=== PATIENT | female | born 1965 | race Caucasian/White ===

== ENCOUNTER 2017-02-26 05:37 | Inpatient (IN) | payer OTHER ==
--- NOTE | 2017-02-25 17:58 | PREOPHP ---
DATE OF ADMISSION: 02/26/2017 REASON FOR ADMISSION: She is to be admitted tomorrow for exploratory laparotomy, total abdominal hy sterectomy, bilateral salpingo-oophorectomy and possible ureteral dissection. CHIEF COMPLAINT: The patient was found to have a large mass in her abdomen, probably of ovarian jasbir gin. HISTORY OF PRESENT ILLNESS: This is a 51-year-old female, 4, para 2 with 2 therapeutic abor tions, whose last menstrual period started on 01/18/2017. She first was seen in the office on 01/23. She was referred by her primary care physician with a large abdominal mass. She was diagnos ed in July of last year; however, after several different opinions, she was frustrated and final ly consulted with her current primary care provider who sent her to our care. She had on hand at th e time of the consultation an MRI of the pelvis with contrast on 07/24/2016 that showed an 22 cm com plex cystic mass probably coming from the ovaries. There was mild to moderate right hydronephrosis also probably caused by the pressure of the mass on the ureter. She was counseled to have an explor atory laparotomy and TAHBSO. She was sent to the lab for tumor markers. All the tumor markers came back negative. The exploratory laparotomy, however, will be done along with Dr. Jonas Cruz, [facility] oncologist, in case this is a malignant tumor and there will be a need for ureteral dissection and lymph node dissection. The alternatives, benefits and the risks of this procedures and possible co mplications were discussed with the patient in detail in the office. She was allowed to ask uriah ns and all her questions were answered to her satisfaction and she signed the appropriate surgical i nformed consent. PAST MEDICAL HISTORY: The patient denies any medical problems. She denies any cardiovascular disea se, hypertension, diabetes, renal disease, liver disease, neurological disease. ALLERGIES: NO KNOWN ALLERGIES. MEDICATIONS: She takes no medications on a regular basis. FAMILY HISTORY: Noncontributory. REVIEW OF SYSTEMS: A 12-point review of systems is noncontributory. PHYSICAL EXAMINATION: GENERAL: Well-developed and nourished, in no distress, alert and oriented x3. Height is 5 feet 6 i nches and weight of 147 pounds. BMI is 24. VITAL SIGNS: Showed the temperature to be 98, blood pressure 110/62, respirations 16 per minute, th e pulse is 80/minute, regular. HEENT: Within normal limits. Pupils are PERRLA. NECK: Supple. The thyroid is nonpalpable. There is no lymphadenopathy. BREASTS: Show no masses or lumps. Nipples normal. LUNGS: Clear to percussion and auscultation. HEART: Revealed normal sinus rhythm without a murmur. ABDOMEN: Soft. There is a large cystic mass that seems to come from the pelvis, both of them take up practically the entire abdomen, nontender. PELVIC: Normal external genitalia. The vagina is normal. Cervix is normal without lesions. There is a large cystic mass in the pelvis extending up to the abdomen. EXTREMITIES: Within normal limits. NEUROLOGIC: Also normal. IMPRESSION: Large cystic pelvic and abdominal mass probably arising from one of the ovaries. Mild to moderate right hydronephrosis. PLAN: The patient is to be admitted tomorrow 02/26/2017. Dictated By: KEVIN PRESLEY/KOSTAS Conf#: [id number] DID#: [id number] CC: JONAS CRUZ MD;*EndCC*
[~2017-02-26] VITALS: Ht 167.6 cm; Wt 65.9 kg
[2017-02-26] VITALS (26 sets, daily range): BP systolic 90–124; BP diastolic 45–71; PULSE 62–96; RESP 10–28; Ht 167.6 cm; Wt 65.9 kg
[2017-02-26] MEDS ORDERED: CIPR500T4 PO (06:53)
[2017-02-26] MEDS ORDERED: ETOMIDATE 20 MG INJ ONE (07:00)
[2017-02-26] MEDS ORDERED: CITRIC ACID/NA CITRATE 30 ML CUP ONE (07:08)
[2017-02-26] MEDS ORDERED: GLYCOPYRROLATE 0.4 MG INJ ONE (07:35)
[2017-02-26] MEDS ORDERED: PROPOFOL 20 ML ONE (07:35)
[2017-02-26] MEDS ORDERED: ROCURONIUM 50 MG INJ ONE (07:35)
[2017-02-26] MEDS ORDERED: MIDAZOLAM 1 MG/ML 2 ML INJ ONE (07:36)
[2017-02-26] MEDS ORDERED: CEFAZOLIN 1 GM INJ ONE (07:36)
[2017-02-26] MEDS ORDERED: FENTAnyl 50 MCG/ML VIAL ONE (07:36)
[2017-02-26] MEDS ORDERED: NEOSTIGMINE 3 MG/3 ML SYRINGE ONE (07:36)
[2017-02-26] MEDS ORDERED: DEXAMETHASONE 4 MG/ML 1 ML INJ ONE (07:37)
[2017-02-26] MEDS ORDERED: ONDANSETRON 4 MG INJ ONE (07:37)
[2017-02-26] MEDS ORDERED: morphine SULFATE/PF (10 MG/10 ML) INJ ONE (07:43)
[2017-02-26] MEDS ORDERED: EPHEDrine SULFATE 50 MG/5 ML SYG IV PRN (08:30)
[2017-02-26] MEDS ORDERED: ZOLPIDEM 5 MG TAB PO PRN (08:30)
[2017-02-26] MEDS ORDERED: HYDROmorphONE 1 MG/ML SYG IV PRN ×2 (08:30)
[2017-02-26] MEDS ORDERED: FENTAnyl 50 MCG/ML VIAL IV PRN ×3 (08:30)
[2017-02-26] MEDS ORDERED: NALBUPHINE HCL (10 MG/1 ML) INJ IV PRN (08:30)
[2017-02-26] MEDS ORDERED: TRIMETHOBENZAMIDE 100 MG/ML VIAL IM PRN ×2 (08:30)
[2017-02-26] MEDS ORDERED: MIDAZOLAM 1 MG/ML 2 ML INJ IV PRN (08:30)
[2017-02-26] MEDS ORDERED: NALOXONE (0.4 MG/ML) INJ IV PRN (08:30)
[2017-02-26] MEDS ORDERED: MEPERIDINE 25 MG INJ IV PRN (08:30)
[2017-02-26] MEDS ORDERED: LABETALOL HCL 20MG INJ IV PRN (08:30)
[2017-02-26] MEDS ORDERED: HYDROmorphONE (0.2 MG/ML) 10ML SYG IV PRN ×3 (08:30)
[2017-02-26] MEDS ORDERED: hydrALAzine 20 MG INJ IV PRN (08:30)
[2017-02-26] MEDS ORDERED: ONDANSETRON 4 MG INJ IV PRN ×3 (08:30→11:00)
[2017-02-26] MEDS ORDERED: OXYCODONE/ACETAMINOPHEN (5/325) TAB PO PRN ×3 (08:30→11:00)
[2017-02-26] MEDS ORDERED: DIPHENHYDRAMINE 50 MG INJ IV PRN ×2 (08:30)
[2017-02-26] MEDS ORDERED: THROMBIN 5000 UNIT VIAL ONE (09:46)
[2017-02-26] MEDS ORDERED: IBUPROFEN 600 MG TAB PO PRN (11:00)
[2017-02-26] MEDS ORDERED: ACETAMINOPHEN 325 MG TAB PO PRN (11:00)
[2017-02-26] MEDS ORDERED: morphine 2 MG INJ IV PRN (11:00)
--- NOTE | 2017-02-26 11:56 | OPR ---
DATE OF OPERATION: 02/26/2017 ANESTHESIOLOGIST: Dr. Sofia JOINTER OPERATOR: Dr. Surya Calvillo PREOPERATIVE DIAGNOSIS: Large ovarian cyst. 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 The contralateral right ovary looked normal as well as the tubes and uterus. The surgical staging for ovarian cancer was done by Dr. Calvillo. OPERATION PERFORMED: Exploratory laparotomy, total abdominal hysterectomy, bilateral salpingo-oophorectomy, multiple peritoneal biopsies. Partial omentectomy and appendectomy. Left aortic and pelvic node dissection by Dr. Calvillo. SURGEON: Kevin Soto MD ESTIMATED BLOOD LOSS: 200 mL of blood. Needle, sponge and instrument count were complete except there was 1 clamp missing that was finally found after taking 2 x-rays of the abdomen that were negative. After mobilizing with the patient postoperatively, the patient's clamp appeared in the surgical drapes. COMPLICATIONS:. None. PROCEDURE AND FINDINGS: With the patient under general anesthesia after spinal. she was laid on the table in the dorsal lithotomy position. She had a Saba catheter draining her bladder. The abdomen was prepped and draped in the usual fashion. A midline incision was done, carried out from the pubic bone all the way up to midway from the umbilicus to the epigastric area. A large ovarian mass was found coming from the left ovary. The infundibulopelvic ligament was then isolated and left ureter was found on the dissection. The IP ligament was transected with LigaSure and the specimen removed and sent for frozen section. Frozen section and turned out to be a mucinous borderline cystadenoma of the ovary. Thus, the surgical staging was decided by Dr. Calvillo to carry it out. A total abdominal hysterectomy was done in the usual fashion by clamping the first round ligaments with the LigaSure, open the anterior leaf of the broad ligament and dissecting the bladder away from the uterine isthmus. The pedicles were isolated bilaterally and cauterized with a LigaSure. The right ureter was foud was and the IP ligament was ligated with the Ligasure devise. The cardinal ligaments and uterosacral ligaments bilaterally were taken with clamps, cut and then were sutured with 0 Vicryl. The vagina was entered and the specimen removed. The vaginal cuff was then secured with [id number] sutures of 0 Vicryl that were held for reference. Pelvis was thoroughly washed with warm water. There were no active bleeders. The sutures were then cut. Posterior peritoneum was then opened. The retroperitoneal space was dissected by Dr. Calvillo beginning the staging for ovarian cancer. The periaortic lymph nodes were removed from the left side and then the pelvic lymph nodes also. Good hemostasis was observed. Then, partial omentectomy was done with the LigaSure and the specimen was also sent to pathology. Finally, an appendectomy was done in the usual fashion with Endo- OLI. All counts were correct at this point. Then, the abdomen was then closed in layers starting with the peritoneum and fascia and 1 running stitch of #1 Vicryl. At this point, there was one clamp was missing and after checking everywhere we did not find it and x-ray was called in. Two x-rays were taken of the abdomen and pelvis. They proved to be negative for any objects left behind. Then, the subcutaneous tissues were closed with continuous stitch of double 0 plain catgut. Finally, the edges of skin were brought together with separate sterile delisa. Sterile pressure dressing was applied and the patient was taken to recovery room with all vital signs stable. EBL was 200 mL of blood. Needle, sponge and instrument count at the end of the procedure was correct twice. Dictated By: KEVIN PRESLEY/KOSTAS Conf#: [id number] DID#: [id number] MTDD
[2017-02-26] MEDS: LACTATED RINGER'S 1,000 ML IV SCH ×2 (12:28→18:08)
[2017-02-26] MEDS: CEFAZOLIN 2 GM/50 ML (PMX) 50 ML IVPB SCH ×2 (14:23→22:55)
--- NOTE | 2017-02-26 14:23 | RADRPT ---
PROCEDURE: XR Abdomen. CLINICAL INDICATION: Missing instruments. TECHNIQUE: AP abdomen x-ray. COMPARISON: None. FINDINGS: The bowel gas pattern is normal. There is no evidence of free air or obstruction. There are no abnor mal calcifications overlying the urinary tracts. The osseus structures are unremarkable. No radiopaque foreign body. Saba catheter in place. IMPRESSION: 1. No evidence of radiopaque foreign body. Saba catheter in place. 2. No free air or obstruction. RPTAT:AAJJ Osman Avalos Physician Date Time Electronically viewed and signed by Physician Debora on 02/26/2017 14:22 JAME/
[2017-02-26] MEDS: KETOROLAC 30 MG INJ IV PRN (22:55)
[2017-02-27] MEDS: LACTATED RINGER'S 1,000 ML IV SCH ×2 (03:03→13:59)
[2017-02-27] MEDS: CEFAZOLIN 2 GM/50 ML (PMX) 50 ML IVPB SCH (05:08)
[2017-02-27] MEDS: KETOROLAC 30 MG INJ IV PRN (05:08)
[2017-02-27 05:50] LABS: ADD SCAN DIFF NO
[2017-02-27 06:10] VITALS: BP 100/51; PULSE 57; RESP 18
[2017-02-27 06:13] LABS: HEMATOCRIT 34.4 % (37.0-47.0); HEMOGLOBIN 10.9 g/dl (12.0-16.0); LYMPHOCYTES % 15.1 % (15.0-51.0); MEAN CORPUSCULAR HEMOGLOBIN 28.3 pg (29.0-33.0); MEAN CORPUSCULAR HGB CONC 31.7 g/dl (32.0-37.0); MEAN CORPUSCULAR VOLUME 89.4 fl (82.0-101.0); MEAN PLATELET VOLUME 11.3 fl (7.4-10.4); MONOCYTE # 0.8 10^3/ul (0.3-0.9); NEUTROPHIL # 5.1 10^3/ul (1.6-7.5); NEUTROPHILS % 73.6 % (39.0-77.0); PLATELET COUNT 183 10^3/UL (140-415); RED BLOOD COUNT 3.85 10^6/ul (4.20-5.40); RED CELL DISTRIBUTION WIDTH 13.2 % (11.5-14.5); WHITE BLOOD COUNT 6.9 10^3/ul (4.8-10.8)
[2017-02-27 06:52] LABS: CALCIUM 9.4 mg/dl (8.4-10.2); CREATININE 0.67 mg/dl (0.44-1.00); POTASSIUM 4.3 mmol/L (3.5-5.1)
[2017-02-27 07:30] VITALS: BP 91/53; RESP 18
--- NOTE | 2017-02-27 08:16 | PN ---
Date/Time of Note Date/Time of Note DATE: 02/27/17 TIME: 08:13 Assessment/Plan VTE Prophylaxis VTE Prophylaxis Intervention: ambulation, anti-embolic stocking Lines/Catheters IV Catheter Type (from Nrs): Peripheral IV Urinary Cath still in place: Yes Assessment/Plan Chief Complaint/Hosp Course Afebrile,in good spirits.WBC 6.9 Hgb 10.9 Problems: Assessment/Plan Doing well.Minimal BS. Cont'd Hospitalization Reason: Start ambulation and Lovenox for DVT-PE prevention Exam/Review of Systems Vital Signs Vitals Vital Signs Date Time Temp Pulse Resp B/P Pulse Ox O2 Delivery O2 Flow Rate FiO2 02/27/17 07:30 97.8 68 18 91/53 98 02/27/17 06:10 Room Air 02/26/17 12:20 2.0 Intake and Output 02/26/17 02/26/17 02/27/17 15:00 23:00 07:00 Intake Total 4550 ml 400 ml 1500 ml Output Total 800 ml 2500 ml Balance 3750 ml 400 ml -1000 ml Results Result Diagram: 02/27/17 0433 02/27/17 0433 Results 24 hrs Laboratory Tests Test 02/27/17 04:33 02/27/17 06:39 White Blood Count 6.9 Red Blood Count 3.85 L Hemoglobin 10.9 L Hematocrit 34.4 L Mean Corpuscular Volume 89.4 Mean Corpuscular Hemoglobin 28.3 L Mean Corpuscular Hemoglobin Concent 31.7 L Red Cell Distribution Width 13.2 Platelet Count 183 Mean Platelet Volume 11.3 H Neutrophils % 73.6 Lymphocytes % 15.1 Monocytes % 11.0 Eosinophils % 0.0 Basophils % 0.0 Nucleated Red Blood Cells % 0.0 Neutrophils # 5.1 Lymphocytes # 1.0 Monocytes # 0.8 Eosinophils # 0.0 Basophils # 0.0 Nucleated Red Blood Cells # 0.0 Sodium Level 141 Potassium Level 4.3 Chloride Level 107 Carbon Dioxide Level 27 Anion Gap 11 Blood Urea Nitrogen 8 Creatinine 0.67 Glucose Level 89 Calcium Level 9.4 Lab Scanned Report REFERENCE LAB Medications Medications Current Medications Hydromorphone HCl (Dilaudid) 0.2 mg Q2H PRN IV PAIN LEVEL 1-5; Start 02/26/17 at 08:30 Hydromorphone HCl (Dilaudid) 0.4 mg Q2H PRN IV PAIN LEVEL 6-10; Start 02/26/17 at 08:30 Ketorolac Tromethamine (Toradol) 30 mg Q6H PRN IV PAIN LEVEL 6-10 Last administered on 02/27/17 05:08; Admin Dose 30 MG; Start 02/26/17 at 08:30; Stop 02/27/17 at 08:29 Ondansetron HCl 4 mg 4 mg Q6H PRN IV NAUSEA AND/OR VOMITING; Start 02/26/17 at 08:30 Lactated Ringer's (Lr) 1,000 ml @ 100 mls/hr Q10H IV Last administered on 02/27 03:03; Admin Dose 100 MLS/HR; Start 02/26/17 at 10:46 Acetaminophen (Tylenol Tab) 650 mg Q4H PRN PO PAIN LEVEL 1-5; Start 02/26/17 at 11:00 Ibuprofen (Motrin) 600 mg Q8H PRN PO PAIN AND OR ELEVATED TEMP; Start 02/26/17 at 11:00 Oxycodone/ Acetaminophen (Percocet (5/ 325)) 1 tab Q4H PRN PO PAIN LEVEL 6-10; Start 02/26/17 at 11:00 Morphine Sulfate (morphine) 2 mg Q2H PRN IV BREAKTHROUGH PAIN; Start 02/26/17 at 11:00 Ondansetron HCl (Zofran Inj) 4 mg Q6H PRN IV NAUSEA AND/OR VOMITING Last administered on 02/26/17 18:47; Admin Dose 4 MG; Start 02/26/17 at 11:00 Oxycodone/ Acetaminophen (Percocet (5/ 325)) 2 tab Q4H PRN PO PAIN; Start 02/26 at 11:00 KEVIN ARIAS MD Feb 27, 2017 08:16
[2017-02-27] MEDS: PANTOPRAZOLE 40 MG INJ IV SCH (08:43)
[2017-02-27] MEDS: ENOXAPARIN 40 MG/0.4 ML SYG SC SCH (08:45)
[2017-02-27 21:58] VITALS: BP 101/50; RESP 20
[2017-02-28] MEDS: OXYCODONE/ACETAMINOPHEN (5/325) TAB PO PRN ×2 (02:35→18:09)
[2017-02-28] MEDS: LACTATED RINGER'S 1,000 ML IV SCH ×3 (02:46→22:46)
[2017-02-28] MEDS: PANTOPRAZOLE 40 MG INJ IV SCH (04:39)
[2017-02-28 08:16] VITALS: BP 98/55; RESP 16
[2017-02-28] MEDS: ENOXAPARIN 40 MG/0.4 ML SYG SC SCH (09:24)
--- NOTE | 2017-02-28 14:07 | PN ---
Date/Time of Note Date/Time of Note DATE: 02/28/17 TIME: 14:04 Assessment/Plan Lines/Catheters IV Catheter Type (from Nrsg): Peripheral IV Saba in Place (from Nrsg): Yes Subjective 24 Hr Interval Summary S no flatus yet tolerating diet ok O vss afebrile abdomen soft wound dry calf neg for tenderness no sig vaginal bleeding A ARSEN BSO etc P as ordered encourage ambulation Exam/Review of Systems Vital Signs Vitals Vital Signs Date Time Temp Pulse Resp B/P Pulse Ox O2 Delivery O2 Flow Rate FiO2 02/28/17 08:16 98.4 78 16 98/55 99 02/27/17 06:10 Room Air 02/26/17 12:20 2.0 Intake and Output 02/27/17 02/27/17 02/28/17 15:00 23:00 07:00 Intake Total 700 ml 1350 ml 1400 ml Output Total 1800 ml 1350 ml Balance 700 ml -450 ml 50 ml Results Result Diagram: 02/27/17 0433 02/27/17 0433 CHAPITO GREENBERG MD Feb 28, 2017 14:07
[2017-02-28 19:27] VITALS: BP 111/62; RESP 20
[2017-03-01] MEDS ORDERED: MAGNESIUM HYDROXIDE 30ML CUP PO PRN (05:00)
[2017-03-01] MEDS: OXYCODONE/ACETAMINOPHEN (5/325) TAB PO PRN (05:05)
[2017-03-01] MEDS ORDERED: PANTOPRAZOLE (EC) 40 MG TAB PO SCH (06:00)
[2017-03-01 08:06] VITALS: BP 104/60; RESP 16
[2017-03-01] MEDS: LACTATED RINGER'S 1,000 ML IV SCH (08:46)
[2017-03-01] MEDS: ENOXAPARIN 40 MG/0.4 ML SYG SC SCH (09:24)
--- NOTE | 2017-03-01 09:31 | DS ---
Date/Time of Note Date/Time of Note DATE: 03/01/17 TIME: 09:26 Discharge Summary Admission/Discharge Info Admit Date/Time Feb 26, 2017 at 05:37 Discharge Date/Time March 01 at 0930 Discharge Diagnosis mucinous cystadenoma borderline of left ovary Patient Condition: Stable Procedures explratory laparotomy ARSEN BSO peritoneal bx partial omentectomy appendectomy lt aortic pelvic node dissection Hx of Present Illness see hx Hospital Course Afebrile,in good spirits.WBC 6.9 Hgb 10.9 Home Meds Reported Medications Ciprofloxacin Hcl* (Ciprofloxacin Hcl*) 500 Mg Tablet, 500 MG PO BID, #14 TAB 02/26/17 Follow-up Plan call DR oleary office for appoinment Primary Care Provider Not On Staff Doctor Time spent on discharge: < 30 minutes CHAPITO GREENBERG MD Mar 01, 2017 09:31
--- NOTE | 2017-03-01 09:33 | PD.PPDC ---
FIREARMS INSTRUCTOR Discharge Instruction Diagnosis Final Diagnosis: mucinous cystadenoma borderline of left ovary Condition Patient Condition: Stable Diet Diet: Resume Regular Diet Activity/Restrictions Activity: May Shower Restrictions: No Exercising No Lifting No Driving Minimize Stair-climbing No Sexual Activity Nothing in the Vagina No Gardi No Tampons, douche Wound/Drain Care Instructions Wound/Drain Care Instructions: Wash with soap and water Keep clean and dry Follow-up Follow-up with Physician: 2, Week/Weeks Return to clinic for VOICE TEACHER Instructions: Fever greater than 101 Chills Worsening abdominal pain Excessive Vaginal Bleeding More than 2 pads per hour Unable to tolerate diet Surgical Instructions: Incisional Drainage Incisional Redness CHAPITO GREENBERG MD Mar 01, 2017 09:33
--- NOTE | 2017-03-01 20:43 | OPR ---
Date/Time of Note Date/Time of Note DATE: 03/01/17 TIME: 20:42 Operative Report Free Text/Dictation OPERATIVE REPORT [facility] Name: Josie Rg Medical Date: 02/25/17 Preoperative Diagnosis: Pelvic mass Postoperative Diagnosis: 1- Ovarian cancer vs LMP pathology pending 2- Ureteral stricture Procedures: 1-Bilateral ureterolysis with repositioning 2-Staging with Omentectomy and retroperitoneal LND 3-Appendectomy Surgeon: Dr. Calvillo Lay Out Carpenter: Dr. Romain Soto Anesthesia: General Indication for procedure: The patient was a 51- year old patient with a large left symptomatic adnexal mass who after considering all options with risks and benefits was to undergo a total abdominal hysterectomy with bilateral salpingoophorectomy and I was to provide intraoperative consultation as needed and be available on the consent as a consultant nurse for staging if needed and other technical assistance as needed. Findings and Summary: After exploration we noted a massive complex left adnexal mass adherent to the sidewall and right adnexia also adherent therefore it was requested that a bilateral ureteral dissection and repositioning be performed. The ARSEN/BSO was then completed uneventfully and on the basis of a frozen section an appropriate Name: Josie Rg Medical staging was completed. Procedure: After being prepped and draped in the usual manner a midline skin incision was made of appropriate length by Dr. Romain Soto. The electrocautery was then used to dissect thru the adipose tissue to the level of the fascia. The fascia was incised sharply and the peritoneum identified. At this time the peritoneum was elevated and incised with a Metzenbaum scissors. At this time, the pelvis was inspected and we noted: an enlarged uterus with a suggestion of fibroids and large left sided complex adnexal mass adherent to the sidewall. It was therefore requested that I perform a ureteral dissection with repositioning bilaterally, as a separate procedure, so that the intended procedure could be completed without complication. Hence the ureteral dissection with repositioning was undertaken. The left round ligament was transected with a Ligasure and the retroperitoneum opened parallel to the infundibulo-pelvic (IP) ligament with the same instrument and an argon gardner waste disposal leakage tester. The ureter was identified, and noted to be adherent to the peritoneum and somewhat strictured distally. The ureter was dissected away from the peritoneum with adjacent pathology and repositioned with great care using the right angle clamp and the peanut as well as digitally. This process was carried out throughout the ureteral length in the pelvis and it peristalsed normally once repositioned. The IP ligament was then clamped and dissected and cut with a Ligasure and sutured and tied with 0- Vicryl suture. 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 Subsequently, the right round ligament was desiccated and transected with a Ligasure forceps and the retroperitoneum opened parallel to the infundibulo-pelvic (IP) ligament with the same devise. The ureter was identified, and noted to also be adherent to the pathology and somewhat stricture distally. Hence the ureteral dissection with repositioning was undertaken. The ureter was dissected away from the peritoneum with adjacent Name: Josie Rg [facility] pathology and repositioned with care using the right angle clamp and the peanut and digitally. This process was carried out throughout the ureteral length in the pelvis and it peristalsed normally once repositioned in the process of the dissection. The IP ligament was then clamped, desiccated and transected with a Ligasure and sutured as well as free-tied with Interrupted 0- Vicryl suture. The hysterectomy as planned was then completed by Dr. Romain Soto uneventfully. Because the frozen section returned at [facility] additional staging was completed. At this time, the omentum was dissected from the transverse colon with sharp dissection and electrocautery when possible. Vessels to large to be managed by electrocautery or too close to the colon were addressed with the cutting phase of the Ligasure or sutured with 3-0 silk suture if needed. This procedure was carried out throughout the length of the omentum and transverse colon. All vascular pedicles were divided using the Ligasure if the pedicle was vascular but somewhat skeletonized. Oozing areas in the cautery line with either devise were either recauterized or sutured with 3-0 silk. We then entered the lesser sac bluntly and the gastro- colic ligament from the greater curvature of the stomach with electrocautery and 3-0 silk suture used as needed. The Ligasure was used for additional pedicles as the gastrocolic ligament was from the stomach. Oozing areas in any cautery lines were either cauterized or sutured with 3-0 silk depending on the proximity to adjacent gastric serosa. The specimen was removed en-bloc, after which the transverse colon was thoroughly inspected and any sero- muscular defects encountered were repaired with interrupted 3-0 Silk suture. Subsequently additional biopsies were taken of peritoneal surfaces on the diaphragm, gutters, and pelvis. Furthermore, the retractors were repositioned and palpable ronald tissue was removed from the pelvic vessels with emphasis ipsilateral to the mass with the Ligasure being used for hemostasis and lymphostasis as needed. The retractors were repositioned and ronald tissue adjacent to the vena cava was removed with sharp dissection and the Ligasure forceps being used for hemostasis and lymphostasis on the right side as needed. Subsequently Name: Josie Rg [facility] attention was focused contralaterally on the site of the primary lesion and palpable ronald tissue was removed from the pelvic vessels with the Ligasure being used for hemostasis and lymphostasis on the right side as needed. The retractors were repositioned and ronald tissue adjacent to the aorta were removed with sharp dissection and the being used for hemostasis and lymphostasis on the right side as needed. Due to the primary lesion being mucinous and the patient being stable, an appendectomy was indicated despite being normal in appearance. Hence an appendectomy was performed. Initially the base of the appendix was dissected away from the cecum with a tonsil. Subsequently, the appendix was from the cecum with and endo-OLI stapler. We then divided the appendiceal mesentery with a Ligasure with additional 3-0 Silk suture used as needed. At this time, after all packing was removed, the abdomen thoroughly irrigated, hemostasis confirmed, although an x- ray was needed. A figure of eight suture was placed at the apex of the incision with 1-Vicryl and used for exposure by elevating with a Pean clamp. A continuous suture of 1- Vicryl was used from the rostral apex and run to the supra-pubic area. The final suture was tied appropriately, after which the figure of eight was tied. The subcutaneous tissue was irrigated and the skin was closed with 3-0 Vicryl suture and skin clips. The sponge, needle, and instrument were correct two times. The estimated blood loss was 100 ml. The patient tolerated the procedure well and left the OR in good condition. Jonas Eisenkop, M.JONAS CUMMINGS MD Mar 01, 2017 20:43
== END 2017-03-01 11:20 | disposition home or self-care (01) | DRG 737 ==
LOC: REC 05:37 → MS1 14:31
PROVIDERS: ADMIT Specialist; ATTEND Specialist
PROC: 0UT20ZZ Resection of Bilateral Ovaries, Open Approach (ICD-10-PCS; 2017-02-26)
PROC: 0UT70ZZ Resection of Bilateral Fallopian Tubes, Open Approach (ICD-10-PCS; 2017-02-26)
PROC: 0DTJ0ZZ Resection of Appendix, Open Approach (ICD-10-PCS; 2017-02-26)
PROC: 0TS80ZZ Reposition Bilateral Ureters, Open Approach (ICD-10-PCS; 2017-02-26)
PROC: 0DBW0ZX Excision of Peritoneum, Open Approach, Diagnostic (ICD-10-PCS; 2017-02-26)
PROC: 0DBS0ZX (ICD-10-PCS; 2017-02-26)
PROC: 07BD0ZX Excision of Aortic Lymphatic, Open Approach, Diagnostic (ICD-10-PCS; 2017-02-26)
PROC: 07BC0ZX Excision of Pelvis Lymphatic, Open Approach, Diagnostic (ICD-10-PCS; 2017-02-26)
PROC: 0UT90ZZ Resection of Uterus, Open Approach (ICD-10-PCS; principal; 2017-02-26 07:30)
PROC: 0UTC0ZZ Resection of Cervix, Open Approach (ICD-10-PCS; 2017-02-26 07:30)
DX: C56.2 Malignant neoplasm of left ovary (principal); N13.30 Unspecified hydronephrosis; N13.5 Crossing vessel and stricture of ureter without hydronephrosis
CPT/HCPCS: 74000; 80048; 85025; 86850; 86870; 86900; 86901; 86920; 87086; 88304; 88305; 88307; 88331; C9113; J0690; J1100; J1170; J1650; J1885; J2250; J2274; J2405; J2710; J3010; J7120